=== PATIENT | female | born 1955 | race African-American/Black ===

== ENCOUNTER 2023-07-26 14:51 | Emergency (ER) | payer OTHER ==
[~2023-07-26] VITALS: Ht 144.8 cm; Wt 59.9 kg
[2023-07-26] MEDS ORDERED: GLIPIZIDE XL10 MG PO (15:28)
[2023-07-26] MEDS ORDERED: GLUMETZA1000 MG PO (15:28)
== END 2023-07-26 18:44 | disposition home or self-care (01) ==
LOC: ER 14:51
DX: M79.672 Pain in left foot (principal); E11.65 Type 2 diabetes mellitus with hyperglycemia; Z79.84 Long term (current) use of oral hypoglycemic drugs

== ENCOUNTER 2024-12-03 07:08 | Outpatient (CLI) | payer OTHER ==
[~2024-12-03 07:08] MED LIST: GLIPIZIDE XL10 MG PO; GLUMETZA1000 MG PO
== END 2024-12-03 07:12 | disposition home or self-care (01) ==
LOC: NUCLEAR 07:08
PROVIDERS: ATTEND General Practice
DX: E04.1 Nontoxic single thyroid nodule (principal); E11.69 Type 2 diabetes mellitus with other specified complication; E21.2 Other hyperparathyroidism; E55.9 Vitamin D deficiency, unspecified; E56.8 Deficiency of other vitamins; I11.9 Hypertensive heart disease without heart failure; E78.2 Mixed hyperlipidemia; M81.0 Age-related osteoporosis without current pathological fracture
CPT/HCPCS: 78072; A9500